=== PATIENT | female | born 1975 | race Caucasian/White ===

== ENCOUNTER 2016-06-21 17:19 | Emergency (ER) | payer MEDICAID ==
--- NOTE | 2016-06-21 17:47 | Emergency Department Record ---
History of Present Illness - General Chief Complaint: Back Pain/Injury Stated Complaint: BACK PAIN Time Seen by Provider: 06/21/16 17:39 Source: Patient - History of Present Illness Initial Comments: The patient bent over from a standing position to pickle maker her 40 plus pound toddler and felt a severe pain in her left lower back and buttock about 6 hours ago. She took a norco and ultram at that time which has not helped. She states it di not go down her leg, but her entire low back is very painful. MD Complaint: Back injury Onset/Timin -: Hour(s) Similar Symptoms Previously: Yes Place: Home Radiation: Left leg Severity scale (1-10): 10 Quality: Sharp, Stabbing, Other Improves With: None Worsens With: Movement Context: Bending Associated Symptoms: Denies other symptoms Treatments Prior to Arrival: Prescription analgesics Treatment Prior to Arrival Comment:: Cromwell and Tramadol @1pm - Related Data Previous Rx's Medication Instructions Recorded Diazepam [Valium] 10 mg PO TID #20 tab 06/21/16 Hydrocodone/Acetaminophen [Cromwell 1 tab PO Q6H PRN #20 tab 06/21/16 5mg/325mg] Allergies Allergy/AdvReac Type Severity Reaction Status Date / Time No Known Drug Allergies Allergy Verified 06/21/16 17:29 Travel Screening - Travel/Exposure Within Last 30 Days Have you traveled within the last 30 days?: No Review of Systems Reviewed: No additional complaints except as noted below Constitutional: Reports: As per HPI. Denies: Chills, Fever, Malaise, Night sweats, Weakness, Weight change Eyes: Reports: As per HPI. Denies: Eye discharge, Eye pain, Photophobia, Vision change ENT: Reports: As per HPI. Denies: Congestion, Dental pain, Ear pain, Epistaxis , Hearing loss, Throat pain Respiratory: Reports: As per HPI. Denies: Cough, Dyspnea, Hemoptysis, Stridor, Wheezes Cardiovascular: Reports: As per HPI. Denies: Arrhythmia, Chest pain, Dyspnea on exertion, Edema, Murmurs, Orthopnea, Palpitations, Paroxysmal nocturnal dyspnea, Rheumatic Fever, Syncope Endocrine: Reports: As per HPI. Denies: Fatigue, Heat or cold intolerance, Polydipsia, Polyuria Gastrointestinal: Reports: As per HPI. Denies: Abdominal pain, Constipation, Diarrhea, Hematemesis, Hematochezia, Melena, Nausea, Vomiting Genitourinary: Reports: As per HPI. Denies: Abnormal menses, Discharge, Dyspareunia, Dysuria, Frequency, Hematuria, Incontinence, Retention, Urgency Musculoskeletal: Reports: As per HPI. Denies: Arthralgia, Back pain, Gout, Joint swelling, Myalgia, Neck pain Skin: Reports: As per HPI. Denies: Bruising, Change in color, Change in hair/ nails, Lesions, Pruritus, Rash Neurological: Reports: As per HPI. Denies: Abnormal gait, Confusion, Headache, Numbness, Paresthesias, Seizure, Tingling, Tremors, Vertigo, Weakness Psychiatric: Reports: As per HPI. Denies: Anxiety, Auditory hallucinations, Depression, Homicidal thoughts, Suicidal thoughts, Visual hallucinations Hematological/Lymphatic: Reports: As per HPI. Denies: Anemia, Blood Clots, Easy bleeding, Easy bruising, Swollen glands Past Medical History - SOCIAL HISTORY Smoking Status: Current every day smoker Alcohol Use: Occassional Drug Use: None - RESPIRATORY Hx Respiratory Disorders: No - CARDIOVASCULAR Hx Cardio Disorders: No - NEURO Hx Neuro Disorders: No - GI Hx GI Disorders: No - Hx Genitourinary Disorders: No - ENDOCRINE Hx Endocrine Disorders: No - MUSCULOSKELETAL Hx Musculoskeletal Disorders: Yes - PSYCH Hx Psych Problems: Yes Hx Anxiety: Yes Family Medical History Any Significant Family History?: No Physical Exam - General General Appearance: Alert, Oriented x3, Cooperative, Severe distress (crying in distress; ) - Head Head exam: Normal inspection - Eye Eye exam: Normal appearance, PERRL Pupils: Normal accommodation - ENT ENT exam: Normal exam, Mucous membranes moist, Normal external ear exam, Normal orophraynx, TM's normal bilaterally Ear exam: Normal external inspection. negative: External canal tenderness Nasal Exam: Normal inspection. negative: Discharge, Sinus tenderness Mouth exam: Normal external inspection, Tongue normal Teeth exam: Normal inspection. negative: Dental caries Throat exam: Normal inspection. negative: Tonsillar erythema, Tonsillar exudate - Neck Neck exam: Normal inspection, Full ROM. negative: Tenderness - Respiratory Respiratory exam: Normal lung sounds bilaterally. negative: Respiratory distress - Cardiovascular Cardiovascular Exam: Regular rate, Normal rhythm, Normal heart sounds - GI/Abdominal GI/Abdominal exam: Soft, Normal bowel sounds. negative: Tenderness - Rectal Rectal exam: Deferred - exam: Deferred - Extremities Extremities exam: Normal inspection, Full ROM, Normal capillary refill. negative: Tenderness - Back Back exam: Reports: Normal inspection, Full ROM, Muscle spasm, Other (tender diffusely across lower lumbar and sacral and buttock regions on palpation). Denies: Rash noted, Tenderness, Vertebral tenderness - Neurological Neurological exam: Alert, CN II-XII intact, Normal gait, Oriented X3, Reflexes normal (0/4 bilateral lower extremities, no foot drop, normal pulses bilaterally , ). negative: Motor sensory deficit - Psychiatric Psychiatric exam: Normal affect, Normal mood - Skin Skin exam: Dry, Intact, Normal color, Warm Course Vital Signs 06/21/16 17:24 Temperature 98.0 F Pulse Rate 89 Respiratory 18 Rate Blood Pressure 143/87 Pulse Ox 99 - Reevaluation(s) Reevaluation #1: Feeling some improvement already. Wishes to be discharged at 20 minutes so her daughter can be able to get her home to bed. 06/21/16 18:22 Medical Decision Making - Management Options MDM Management: No Additional Work-up Planned Disposition Disposition: Discharge Clinical Impression: Muscle spasm of back Low back strain Qualifiers: Encounter type: initial encounter Qualified Code(s): S39.012A - Strain of muscle, fascia and tendon of lower back, initial encounter Disposition: Home, Self-Care Condition: (1) Good Instructions: Low Back Strain (ED) Additional Instructions: Home. Flat bed rest, firm surface. Take medications as directed for the first 48 hours. GENTLE stretches as tolerated. No lifting bending twisting. Push fluids. Be sitting on supportive chair cough and allow your toddler to crawl onto your lap--no lifting of toddler. Follow up with PCP 5-7 days--call office in a.m. for recheck appointment scheduling. Prescriptions: Hydrocodone/Acetaminophen [Cromwell 5mg/325mg] 1 tab PO Q6H PRN #20 tab PRN Reason: Pain - General Diazepam [Valium] 10 mg PO TID #20 tab
[2016-06-21] MEDS ORDERED: DIAZEPAM 5 MG/1 ML TUBX IM ONE (17:49)
[2016-06-21] MEDS ORDERED: HYDROMORPHONE HCL 1 MG/ML CPJ IM ONE (17:49)
== END 2016-06-21 18:56 | disposition home or self-care (01) ==
LOC: ER 17:19
DX: S39.012A Strain of muscle, fascia and tendon of lower back, initial encounter (principal); X50.0XXA Overexertion from strenuous movement or load, initial encounter
CPT/HCPCS: 99283 ×2; 96372; J1170; J3360

== ENCOUNTER 2016-10-03 19:25 | Emergency (ER) | payer MEDICAID ==
[2016-10-03 20:50] LABS: BASO % 0.4 % (0-6); EOS % 0.7 % (0-6); GRAN % 76.7 % (47-80); HEMATOCRIT 34.8 % (35.0-47.0); HEMOGLOBIN 10.9 gm/dl (11.6-16.0); LYMPH % 17.1 % (16-45); MEAN CELL VOLUME 82.3 fl (81-97); MEAN CORPUSCULAR HGB CONC 31.3 g/dl (32-36); MEAN PLATELET VOLUME 9.4 fl (7.4-10.4); MONO % 5.1 % (0-9); PLATELET COUNT 520 K/uL (130-400); RED BLOOD COUNT 4.23 M/uL (3.80-5.40); RED CELL DISTRIBUTION WIDTH 16.6 % (11.5-14.5); WHITE BLOOD COUNT W/O DIFF 11.8 K/uL (4.2-12.2)
[2016-10-03 20:51] LABS: MEAN CORPUSCULAR HEMOGLOBIN 25.7 pg (27-33)
[2016-10-03 21:01] LABS: ALB/GLOB RATIO 1.3 (1.1-1.8); ALBUMIN 4.2 gm/dL (3.5-5.0); ALKALINE PHOSPHATASE 67 U/L (38-126); ALT/SGPT 43 U/L (9-52); ANION GAP 6.7 (7-16); AST/SGOT 22 U/L (14-36); BILIRUBIN,TOTAL 0.76 mg/dL (0.2-1.3); BLOOD UREA NITROGEN 14 mg/dL (7-17); CARBON DIOXIDE 23.3 mmol/L (22-30); CREATININE 0.7 mg/dL (0.52-1.04); EST GLOMERULAR FILTRATION RATE > 60 ml/min; GLUCOSE,RANDOM 89 mg/dL (70-110); TOTAL PROTEIN 7.4 gm/dL (6.3-8.2)
--- NOTE | 2016-10-03 22:08 | Emergency Department Record ---
History of Present Illness - General Chief Complaint: General Stated Complaint: HAS A PAINFUL LUMP ON BACK SIDE Time Seen by Provider: 10/03/16 20:16 Source: Patient Mode of Arrival: Ambulatory Limitations: No limitations - History of Present Illness Initial comments: pt had a cyst on her buttock removed by dr perez at [facility] 6 wks ago. she had a medvac for a week. since then the cyst has been getting bigger and exquisitely tender. she cant sit or get comfortable. she called the surgeon's office and they told her to go the ED. -: Week(s) Location: Buttocks Quality: Constant Consistency: Constant Improves with: None Worsens with: Movement Associated Symptoms: Denies other symptoms - Tammy Coma Scale Eye Response: (4) Open spontaneously Motor Response: (6) Obeys commands Verbal Response: (5) Oriented [place] Total: 15 - Related Data Home Medications Medication Instructions Recorded Confirmed Last Taken Clonazepam [Clonazepam] 0.5 mg PO BID PRN 10/03/16 10/03/16 Unknown Dicyclomine HCl [Dicyclomine HCl] 20 mg PO QID 10/03/16 10/03/16 10/03/16 Previous Rx's Medication Instructions Recorded Amoxicillin/Potassium Clav 1 tab PO BID #20 tab 10/03/16 [Augmentin 875-125 Tablet] Ondansetron [Zofran Odt] 4 mg PO Q8H #10 tab.rapdis 10/03/16 Allergies Allergy/AdvReac Type Severity Reaction Status Date / Time No Known Drug Allergies Allergy Verified 06/21/16 17:29 Travel Screening - Travel/Exposure Within Last 30 Days Have you traveled within the last 30 days?: No Review of Systems Reviewed: No additional complaints except as noted below Constitutional: Reports: As per HPI. Denies: Chills, Fever, Malaise, Night sweats, Weakness, Weight change Eyes: Reports: As per HPI. Denies: Eye discharge, Eye pain, Photophobia, Vision change ENT: Reports: As per HPI. Denies: Congestion, Dental pain, Ear pain, Epistaxis , Hearing loss, Throat pain Respiratory: Reports: As per HPI. Denies: Cough, Dyspnea, Hemoptysis, Stridor, Wheezes Cardiovascular: Reports: As per HPI. Denies: Arrhythmia, Chest pain, Dyspnea on exertion, Edema, Murmurs, Orthopnea, Palpitations, Paroxysmal nocturnal dyspnea, Rheumatic Fever, Syncope Endocrine: Reports: As per HPI. Denies: Fatigue, Heat or cold intolerance, Polydipsia, Polyuria Gastrointestinal: Reports: As per HPI. Denies: Abdominal pain, Constipation, Diarrhea, Hematemesis, Hematochezia, Melena, Nausea, Vomiting Genitourinary: Reports: As per HPI. Denies: Abnormal menses, Discharge, Dyspareunia, Dysuria, Frequency, Hematuria, Incontinence, Retention, Urgency Musculoskeletal: Reports: As per HPI. Denies: Arthralgia, Back pain, Gout, Joint swelling, Myalgia, Neck pain Skin: Reports: As per HPI. Denies: Bruising, Change in color, Change in hair/ nails, Lesions, Pruritus, Rash Neurological: Reports: As per HPI. Denies: Abnormal gait, Confusion, Headache, Numbness, Paresthesias, Seizure, Tingling, Tremors, Vertigo, Weakness Psychiatric: Reports: As per HPI. Denies: Anxiety, Auditory hallucinations, Depression, Homicidal thoughts, Suicidal thoughts, Visual hallucinations Hematological/Lymphatic: Reports: As per HPI. Denies: Anemia, Blood Clots, Easy bleeding, Easy bruising, Swollen glands Past Medical History - SOCIAL HISTORY Smoking Status: Light tobacco smoker (<10/day) Alcohol Use: Occasional Drug Use: None - RESPIRATORY Hx Respiratory Disorders: No - CARDIOVASCULAR Hx Cardio Disorders: No - NEURO Hx Neuro Disorders: No - GI Hx GI Disorders: Yes Hx Irritable Bowel: Yes - Hx Genitourinary Disorders: No - ENDOCRINE Hx Endocrine Disorders: No - MUSCULOSKELETAL Hx Musculoskeletal Disorders: Yes - PSYCH Hx Psych Problems: Yes Hx Anxiety: Yes - HEMATOLOGY/ONCOLOGY Hx Hematology/Oncology Disorders: No Family Medical History Any Significant Family History?: Yes Family Hx Comment (NOT TO BE USED IN PLACE OF ITEMS BELOW): Father- Hemochromatosis Hx HTN: Father Physical Exam - General General Appearance: Alert, Oriented x3, Cooperative, Mild distress - Head Head exam: Normal inspection - Eye Eye exam: Normal appearance, PERRL, EOMI Pupils: Normal accommodation - ENT ENT exam: Normal exam, Mucous membranes moist, Normal external ear exam, Normal orophraynx Ear exam: Normal external inspection. negative: External canal tenderness Nasal Exam: Normal inspection. negative: Discharge, Sinus tenderness Mouth exam: Normal external inspection, Tongue normal Teeth exam: Normal inspection. negative: Dental caries Throat exam: Normal inspection. negative: Tonsillar erythema, Tonsillar exudate - Neck Neck exam: Normal inspection, Full ROM. negative: Tenderness - Respiratory Respiratory exam: Normal lung sounds bilaterally. negative: Respiratory distress - Cardiovascular Cardiovascular Exam: Regular rate, Normal rhythm, Normal heart sounds - GI/Abdominal GI/Abdominal exam: Soft, Normal bowel sounds. negative: Tenderness - Rectal Rectal exam: Deferred, Tenderness, Other (mass in l gluteal soft tissue w slight warmth, no erythema.) - exam: Deferred - Extremities Extremities exam: Normal inspection, Full ROM, Normal capillary refill. negative: Tenderness - Back Back exam: Reports: Normal inspection, Full ROM. Denies: Muscle spasm, Rash noted, Tenderness - Neurological Neurological exam: Alert, CN II-XII intact, Normal gait, Oriented X3 - Psychiatric Psychiatric exam: Normal affect, Normal mood - Skin Skin exam: Dry, Intact, Normal color, Warm Course Vital Signs 10/03/16 19:43 Temperature 97.4 F L Pulse Rate 85 Respiratory 20 Rate Blood Pressure 134/89 Pulse Ox 97 - Reevaluation(s) Reevaluation #1: 10/03/16 22:11 d/w dr peña at [facility] who is bone char kiln tender for dr carlson.he asked that pt call office in the am to be seen Medical Decision Making - Lab Data Result diagrams: 10/03/16 20:43 10/03/16 20:43 Lab Results 10/03/16 10/03/16 Range/Units 20:43 20:43 WBC 11.8 (4.2-12.2) K/uL RBC 4.23 (3.80-5.40) M/uL Hgb 10.9 L (11.6-16.0) gm/dl Hct 34.8 L (35.0-47.0) % MCV 82.3 (81-97) fl MCH 25.7 L (27-33) pg MCHC 31.3 L (32-36) g/dl RDW 16.6 H (11.5-14.5) % Plt Count 520 H (130-400) K/uL MPV 9.4 (7.4-10.4) fl Gran % 76.7 (47-80) % Lymphocytes % 17.1 (16-45) % Monocytes % 5.1 (0-9) % Eosinophils % 0.7 (0-6) % Basophils % 0.4 (0-6) % Sodium 137 (136-145) mmol/L Potassium 3.6 (3.5-5.1) mmol/L Chloride 107 (98-107) mmol/L Carbon Dioxide 23.3 (22-30) mmol/L Anion Gap 6.7 L (7-16) BUN 14 (7-17) mg/dL Creatinine 0.7 (0.52-1.04) mg/dL Estimated GFR > 60 ml/min Random Glucose 89 (70-110) mg/dL Calcium 9.2 (8.5-10.1) mg/dL Total Bilirubin 0.76 (0.2-1.3) mg/dL AST 22 (14-36) U/L ALT 43 (9-52) U/L Alkaline Phosphatase 67 (38-126) U/L Total Protein 7.4 (6.3-8.2) gm/dL Albumin 4.2 (3.5-5.0) gm/dL Globulin 3.2 (1.4-4.8) gm/dL Albumin/Globulin Ratio 1.3 (1.1-1.8) Disposition Disposition: Discharge Clinical Impression: Cyst of buttocks Disposition: Home, Self-Care Condition: (1) Good Instructions: Soft Tissue Mass (ED) Additional Instructions: follow up with dr perez tomorrow. return sooner if worse. take norco at home. Prescriptions: Amoxicillin/Potassium Clav [Augmentin 875-125 Tablet] 1 tab PO BID #20 tab Ondansetron [Zofran Odt] 4 mg PO Q8H #10 tab.rapdis Forms: Patient Portal Access Quality - Quality Measures Quality Measures: N/A - Blood Pressure Screening Blood Pressure Classification: Pre-Hypertensive BP Reading Systolic Measurement: 134 Diastolic Measurement: 89 Screening for High Blood Pressure: < Normal BP, F/U Not Required > [[id number]] Normal BP Follow-up Interventions: No follow-up required
[2016-10-03] MEDS ORDERED: ONDANSETRON 4 MG ODT TABLET SL ONE (22:12)
[2016-10-03] MEDS ORDERED: AMOXICILLIN/POTASSIUM CLAV 875MG/125MG TABLET PO ONE (22:12)
--- NOTE | 2016-10-05 07:50 | CT SCAN REPORT ---
EXAM: CT OF THE PELVIS HISTORY: PAIN IN THE LEFT GLUTEAL REGION. TECHNIQUE: CT of the pelvis was performed without intravenous contrast. Comparison: None. FINDINGS: There is an oval mass in the left gluteal soft tissues. This measures 13 cm in transverse dimension x 4.4 cm in anterior posterior dimension x 11.7 cm in superior inferior dimension. This has a density measurement of approximately 20 Hounsfield units. No air bubbles are seen within this. The soft tissues otherwise are unremarkable. There is a low density lesion in the right adnexal region measuring 2 cm in size, likely an ovarian cyst. There is probably a 1 cm cyst in the left adnexal region. The uterus and ovaries otherwise are unremarkable. The bladder is unremarkable. No inguinal mass or adenopathy. The osseous structures are unremarkable. IMPRESSION: 1. THERE IS A LARGE OVAL MASS IN THE LEFT GLUTEAL SOFT TISSUES. THE ETIOLOGY IS UNCERTAIN. THIS IS NOT A SIMPLE CYST. THIS COULD REPRESENT AN AGE INDETERMINATE HEMATOMA OR COMPLEX CYST. SOLID MASS DIFFICULT TO ENTIRELY EXCLUDE. THE EXAM IS COMPROMISED BY THE LACK OF IV CONTRAST. 2. PROBABLE SMALL BILATERAL OVARIAN CYSTS. 3. ULTRASOUND OF THE LEFT GLUTEAL REGION MAY BE OF BENEFIT FOR FURTHER ASSESSMENT. 4. OTHERWISE, UNREMARKABLE CT OF THE PELVIS. JOB NUMBER: [id number] MTDD
== END 2016-10-03 22:27 | disposition home or self-care (01) ==
LOC: ER 19:25
DX: L02.31 Cutaneous abscess of buttock (principal)
CPT/HCPCS: 72192; 80053; 85025; 99283; 99284